=== PATIENT | male | born 1965 | race Caucasian/White ===

== ENCOUNTER 2016-09-16 19:19 | Emergency (ER) | payer BC ==
[~2016-09-16] VITALS: Ht 180.3 cm; Wt 100.7 kg
[2016-09-16 19:23] VITALS: Ht 180.3 cm; Wt 100.7 kg
[2016-09-16] MEDS ORDERED: CHLO25TA2 PO (19:46)
[2016-09-16] MEDS ORDERED: LISI-621 PO (19:46)
--- NOTE | 2016-09-16 19:51 | ERPDOC ---
Departure Disposition Decision Date: Sep 16, 2016 Disposition Decision Time: 20:42 Disposition: 01 DISCHARGED HOME, SELF-CARE Impression Impression Impression: Primary Impression: Hypertension Hypertension type: essential hypertension Qualified Codes: I10 - Essential ( primary) hypertension Additional Impression: Arm paresthesia, right Severity: Moderate Condition: Stable Seen By: Mid-level only Referrals: Shanon PRIETO MD (Family) Patient Instructions: Hypertension (ED), Transient Ischemic Attack (ED) Problems/Meds/Labs Reviewed?: Yes Medications reviewed and manag: Yes Additional Instructions: I do want you to start taking a daily aspirin-324mg tablet as stroke prevention. Continue to monitor your blood pressures at home. If they remain elevated at times then you may need to resume your Lisinopril but at a different dose or try a different medication. I do want you to follow up with Dr Prieto this next week as well. You may need a further workup with MRI and Ultrasound of your carotid arteries if he thinks that this is more of a TIA and not blood pressure issues. If you have any return of symptoms however then please return to ER for reevaluation. Follow up care ordered?: Yes Mental Status: Alert HPI - General Medical General Chief Complaint: General Stated Complaint: POSS TIA Time Seen by Provider: 19:22 Source: patient Exam Limitations: no limitations HPI - General Medical Initial Comments He was at home today and was watching TV. Noticed that he had some visual disturbances. [place] like he had trouble seeing the TV. He then had onset of right sided facial numbness, numbness of the tongue, and right sided arm numbness. This lasted about 45 minutes. He did take his blood pressure at home and it was 170-100. He took a Lisinopril that he had at home and it did come down after that. Was 140s systolic at home. He denies any of these symptoms at this time. Does have a mild headache on the left side of his head. He was taken off of the lisinopril about 2 months ago and only takes Chlorthalidone which he has been taking. He did have this same thing happen about 2 weeks ago as well. It was hot out that day and he was outside working. Had similar symptoms and went inside and laid down. he did have elevated blood pressure at that time as well. Has not been evaluated by his PCP for this. Occurred At: home Onset: Rapid Duration: 1-3 hrs (at 1645) Severity: moderate Associated Symptoms: headaches (left side of his head), DENIES: chest pain, cough, diaphoresis, fever/chills, loss of appetite, malaise, nausea/vomiting, rash, seizure, shortness of breath, syncope, weakness Hx of Similar Symptoms: Yes Allergies: Coded Allergies: No Known Allergies (Unverified , 09/16/16) Past History Past Medical History Metabolic: hypertension Review of Systems Constitutional Constitutional: DENIES: appetite decrease, chills, dizziness, fatigue, fever, weakness Eyes Vision: blurring, DENIES: acuity, change in color, double vision, loss of visual marrero ENMT Ears: DENIES: drainage, pain Sinuses: DENIES: congestion, rhinorrhea Mouth/Throat: DENIES: scratchy throat, sore throat Cardiovascular Cardiac: DENIES: chest pain, dyspnea on exertion, orthopnea Rhythm/Rate: DENIES: irregular beat, palpitations Vascular: DENIES: pedal edema, unilateral swelling Pulmonary Respiratory: DENIES: cough, dyspnea, sputum, tachypnea GI Upper Abdomen: DENIES: nausea, pain, vomiting Lower Abdomen: DENIES: diarrhea, pain Integumentary Skin: DENIES: rash Neurological General: headache (slight left sided headache), DENIES: numbness, tingling, weakness Physical Exam General General Nourishment: well nourished, well developed, appears stated age, no acute distress, adult General Body Habitus: well groomed Vitals and Pain First Documented Vital Signs Date Time Temp Pulse Resp B/P Pulse Ox O2 Delivery O2 Flow Rate FiO2 09/16/16 19:23 98.1 89 18 143/90 98 Room Air Weight: Kilograms: Height (feet): Height (inches): Triage Pain Scale: RN VS reviewed by Provider: Yes Normal Exams: Head: Normocephalic w/o trauma Eyes: Pupils are PERRLA w/ EOMI, No scleral icterus, irritation, or foreign bodies noted ENMT: No facial trauma, nasal exudates, pharyngeal erythema, or exudates are noted Neck: Full range of motion, without adenopathy, JVD, bruits or thyromegaly Chest/Resp: Clear all marrero, with good airflow, and symmetry bilaterally CV: Regular rate and rhythm, without murmur or gallop, Pulses 2+ all extremities, capillary refill, <2 seconds all ext., no pedal edema noted Abdomen: Bowel sounds positive, soft, non-tender, non-distended, no hepatosplenomegaly, masses or bruits noted Lymphatic: No lymphadenopathy, or lymphedema noted Integumentary: No rashes, hives, or bruising noted Neurologic: Patient is alert, and oriented, cranial nerves, motor/sensory/ cerebellar, exams w/o gross deficits, to observation Psychiatric: Patient exhibits, appropriate attention, emotion and affect Neurologic Mental Status: FOUND: alert, oriented GCS Adult : GCS Eye Opening: (4)Spontaneous GCS Verbal: (5)Oriented GCS Motor: (6)Obeys Commands Cranial Nerves: FOUND: extraocular movements, forehead movement, NOT FOUND: facial asymmetry Sensation: FOUND: sharp intact, soft touch intact x4 ext Cerebellar: FOUND: [id number] Differential Diagnoses Considering: CVA, Hypo/Hyperglycemia, Hypo/Hyperkalemia, Hypo/Hypernatremia, Medication Effect, TIA, Other (HTN) Progress Results/Orders Orders Procedure Category Date Status Time EKG EKG 09/16/[address] Head W/O Contrast CT 09/16/16 Taken Troponin I W LAB 09/16/16 Complete Hemolysis Index Cbc W/Auto LAB 09/16/16 Complete Diff-Reflex Manual Bmp - Basic Metabolic LAB 09/16/16 Complete Panel Iv Lock (Ed Only) EDM 09/16/16 Transmitted 19:43 Aspirin (Asa) PHA 09/17/16 In Process 09:00 Lab Results Laboratory Tests Test 09/16/16 19:59 White Blood Count 11.4T/MM3 Red Blood Count 5.44M/MM3 Hemoglobin 16.7GM/DL Hematocrit 48.7% Mean Corpuscular Volume 89.5UM3 Mean Corpuscular Hemoglobin 30.7UUG Mean Corpuscular Hemoglobin Concent 34.3GM/DL RDW Standard Deviation 45.0FL Platelet Count 256T/MM3 Mean Platelet Volume 10.0UM3 Immature Granulocyte % (Auto) 0.2% Neutrophils (%) (Auto) 83.1% Lymphocytes (%) (Auto) 12.4% Monocytes (%) (Auto) 3.8% Eosinophils (%) (Auto) 0.3% Basophils (%) (Auto) 0.2% Absolute Immature Granulocyte (auto 0.02T/MM3 Absolute Neutrophils (auto) 9.5T/MM3 Absolute Lymphocytes (auto) 1.4T/MM3 Absolute Monocytes (auto) 0.4T/MM3 Absolute Eosinophils (auto) 0.0T/MM3 Absolute Basophils (auto) 0.0T/MM3 Turbidity < 20 Sodium Level 146MEQ/L Potassium Level 3.6MEQ/L Chloride Level 106MEQ/L Carbon Dioxide Level 27MEQ/L Anion Gap 13MEQ/L Blood Urea Nitrogen 13.0MG/DL Creatinine 0.9MG/DL Glomerular Filtration Rate Calc 89 BUN/Creatinine Ratio 14RATIO Glucose Level 141MG/DL Calculated Osmolality 283MOSM/KG Calcium Level 9.7MG/DL Icterus Index < 2 Troponin I < 0.012ng/ml Chemistry Specimen Hemolysis 83 Medications Current ED Medications Aspirin (ASA) 324 mg DAILY PO Last administered on 09/16/16t 21:02; Start at 09:00 Progress Progress CBC, BMP, and troponin today are normal. EKG shows NSR. CT is negative for any changes. He has remained free of his symptoms while in ER. We did go ahead and give him an adult ASA here in ER. B/P is 117 systolic. Did discuss HPI, labs, and CT with Dr Rios to see if this is someone that would benefit from admission and MRI with carotid US. At this time she does agree that he can follow up as an outpatient. Will have him start a daily ASA. Return to ER if return of symptoms. He does have a history of vascular headaches in the past where he would have headache with garbled speech. This could represent a complex migraine as he does have a headache at this time. CT CT : Reason for Exam: blurred vision, numbness CT: Head no contrast Interpretation: Normal ROZ HOBBS APRN Sep 16, 2016 19:51
--- NOTE | 2016-09-16 20:13 | NUR ---
TO CT PER CART.
[2016-09-16 20:19] LABS: BASOPHILS % (AUTO) 0.2 % (0-2); EOSINOPHILS % (AUTO) 0.3 % (0-4); HCT - HEMATOCRIT 48.7 % (41-53); HGB - HEMOGLOBIN 16.7 GM/DL (13.5-17.5); IMMATURE GRANULOCYTE # (AUTO) 0.02 T/MM3 (0.00-0.03); IMMATURE GRANULOCYTE % (AUTO) 0.2 % (0.0-0.5); LYMPHOCYTES # (AUTO) 1.4 T/MM3 (1-4.8); LYMPHOCYTES % (AUTO) 12.4 % (23-45); MEAN CORPUSCULAR HGB 30.7 UUG (26-34); MEAN CORPUSCULAR HGB CONC(MCHC 34.3 GM/DL (31-37); MEAN CORPUSCULAR VOLUME 89.5 UM3 (80-100); MONOCYTES # (AUTO) 0.4 T/MM3 (0-0.8); MONOCYTES % (AUTO) 3.8 % (0-9.0); NEUTROPHILS #(AUTO)-ABSOLUTE 9.5 T/MM3 (1.8-7.7); NEUTROPHILS % (AUTO) 83.1 % (33-66); RED BLOOD COUNT 5.44 M/MM3 (4.50-5.90); WBC - WHITE BLOOD COUNT 11.4 T/MM3 (4.5-11.0)
[2016-09-16 20:24] LABS: ANION GAP 13 MEQ/L (5-15); BUN/CREATININE RATIO 14 RATIO (6-26); CALCIUM 9.7 MG/DL (8.4-10.2); CHLORIDE 106 MEQ/L (98-107); CO2 - CARBON DIOXIDE 27 MEQ/L (22-30); CREATININE 0.9 MG/DL (0.8-1.5); GLOMERULAR FILTRATION RATE 89; GLUCOSE 141 MG/DL (75-110); POTASSIUM 3.6 MEQ/L (3.6-5); SODIUM 146 MEQ/L (134-144)
--- NOTE | 2016-09-16 20:45 | NUR ---
UPDATE PATIENT REPORTS NO CHANGE IN HEADACHE AT THIS TIME. REPORTS HE DOESN'T FEEL THE HEADACHE IS BAD ENOUGH TO NEED MEDICATION AT THIS TIME.
--- NOTE | 2016-09-16 20:48 | NUR ---
PROVIDER N NOLD TRACK VEHICLE REPAIRER AT BEDSIDE TO DISCUSS POC
--- NOTE | 2016-09-16 21:08 | NUR ---
PO PO FLUIDS GIVEN OK PER N NOLD COMMUNICATION CLERK
--- NOTE | 2016-09-16 21:16 | NUR ---
IVL IVL DC'D WITH CATH INTACT DRSG APPLIED TO IV SITE PT RASHEED WELL
--- NOTE | 2016-09-16 21:23 | NUR ---
INSTRUCTIONS DISMISSAL INSTRUCTIONS GIVEN TO PT PT VERBALIZED UNDERSTANDING OF ALL
[2016-09-16 21:25] VITALS: BP 117/77; PULSE 93; RESP 18; TEMP 98.1; O2SAT 94
--- NOTE | 2016-09-16 21:25 | NUR ---
DISMISS PT DISMISSED AMBULATORY WITH SPOUSE
--- NOTE | 2016-09-17 08:27 | DI ---
Indication: ITS.REASON: facial numbness, blurred vision PROCEDURE: CT HEAD W/O CONTRAST: Encounter: Initial Comparison: None Technique: Axial CT images through the head were performed without contrast. Iterative Reconstruction dose reducing technique was utilized. FINDINGS: The ventricles are of normal size, shape, and contour for the patient's age. The brainstem, cerebellum, and cerebral hemispheres have a normal morphology and CT attenuation. There is no evidence of midline displacement. No hemorrhage, signs of acute territorial stroke, mass effect, mass lesions, or edema is evident. The visualized portions of the skull base, midface, and calvarium demonstrate no abnormality. The paranasal sinuses are well aerated and free of significant disease. The tympanic and mastoid cavities appear normal. IMPRESSION: No acute intracranial abnormality or hemorrhage. Negative head CT. There is a preliminary report by [facility]. .
[2016-09-17] MEDS ORDERED: ASPIRIN 81 MG CHEWABLE TABLET PO SCH (09:00)
== END 2016-09-16 21:25 | disposition home or self-care (01) ==
LOC: ED 19:19
DX: H53.8 Other visual disturbances (principal); R20.2 Paresthesia of skin; R51 Headache; I10 Essential (primary) hypertension
CPT/HCPCS: 36000; 80048; 84484; 85025; 93005